=== PATIENT | male | born 1995 | race Caucasian/White ===

== ENCOUNTER 2023-06-06 23:34 | Emergency (ER) | payer BC, SELFPAY ==
--- NOTE | ~2023-06-06 | XR_ITS ---
EXAMINATION: XR wrist RT min 3V INDICATION: Right wrist pain TECHNIQUE: Three views of the right wrist are obtained. COMPARISON: None available FINDINGS: There is a 2 mm heterotopic ossification projecting dorsal to the carpals on the lateral vi ew. There appears to be adjacent soft tissue swelling. IMPRESSION: 1. Possible dorsal carpal chip fracture. Correlate for dorsal carpal tenderness. Consider CT. Reviewed, dictated and finalized at location F. KNITTER HELPER IMPRESSION: 1. Possible dorsal carpal chip fracture. Correlate for dorsal carpal tenderness . Consider CT.
--- NOTE | ~2023-06-06 | CT_ITS ---
EXAMINATION: CT brain wo con INDICATION: Head injury COMPARISON: None TECHNIQUE: Standard unenhanced head CT. The dose-length product (DLP) was 681.00 mGy-cm. The mA was a djusted according to patient size. Iterative reconstruction technique was employed. FINDINGS: No intracranial hemorrhage, acute infarction, or abnormal mass lesion. The ventricles are n ormal. No midline shift. The naranjo-white matter differentiation is normal. The basal cisterns are leone nt. There is an arachnoid cyst of the posterior fossa. The orbits are normal. The paranasal sinuses, mastoids and calvarium are normal. IMPRESSION: 1. No acute intracranial abnormality. Reviewed, dictated and finalized at location F. ECRAFT TEACHER
--- NOTE | ~2023-06-06 | CT_ITS ---
EXAMINATION: CT cervical spine wo con DATE: 06/07/2023 00:06 INDICATION: Head injury TECHNIQUE: Computed tomography (CT) of the cervical spine was performed without intravenous contrast. The dose-length product (DLP) was 437.40 mGy-cm. Automated exposure control and iterative reconstruc tion technique were employed. COMPARISON: None FINDINGS: There is reversal of the normal cervical lordosis. Bone alignment is normal. There is no fr acture. The odontoid process is intact. The vertebral body heights and intervertebral disc spaces are maintained. IMPRESSION: 1. No acute osseous abnormality. Reviewed, dictated and finalized at location F. DE SALES AGENT
[2023-06-06 23:38] VITALS: BP 118/61; PULSE 83; RESP 14; TEMP 36.7; O2SAT 100
--- NOTE | 2023-06-07 | PC.NURSE ---
Pt placed in c-collar, protective signal superintendent aware of pt.
--- NOTE | 2023-06-07 00:44 | PC.NURSE ---
Pt called for room. Had removed C-collar while in waiting room. Agreeable to have it placed back on.
--- NOTE | 2023-06-07 01:15 | ED.FALL ---
HPI - Fall General Chief Complaint: Fall Stated Complaint: fall possible loc Time Seen by Provider: 06/07/23 00:48 Source: patient Mode of arrival: ambulatory Limitations: intoxication History of Present Illness HPI Narrative: This is a 27-year-old male that presents to emergency department for head injury tonight. Reports he had been drinking. He remembered ordering pizza and then he woke up at the bottom of a stairwell. He is unsure how he fell. Reports a laceration to the side of his head. He is not up to date on tetanus. Reports bleeding and pain to the area. Also reports right wrist pain. Otherwise no focal injuries or areas of pain. Denies vision changes, vomiting, numbness or weakness. Related Data Allergies Allergy/AdvReac Type Severity Reaction Status Date / Time No Known Allergies Allergy Mild Verified 06/07/23 00:49 Review of Systems Review of Systems: CONSTITUTIONAL: Denies fever EYES: Denies visual changes GASTROINTESTINAL: Denies vomiting MUSCULOSKELETAL: Reports joint pain. Denies back pain, or myalgia. NEUROLOGIC: Denies numbness, or weakness. All systems reviewed & are unremarkable except as noted in HPI and below PMFSH Past Medical History Medical History (Updated 06/07/23 @ 02:02 by Serena Lopez PA-C) No active medical problems Social History Social History (Updated 06/07/23 @ 01:52 by Serena Lopez PA-C) Alcohol intake: current Exam Narrative: GENERAL: Well-appearing, well-nourished, and in no acute distress. HEAD: Normocephalic. 4 cm linear laceration in the subcutaneous tissue to the right side of the scalp EYES: PERRLA and EOMI. ENT: Nares clear, no rhinorrhea or epistaxis. Mucous membranes moist. Oropharynx without tonsillar hypertrophy exudate or other lesions. Bilateral TMs pearly naranjo non-bulging NECK: Supple. No adenopathy or masses. No midline spinal tenderness CHEST: Clear to auscultation. No respiratory distress. No wheezes rales or rhonchi HEART: Regular rate and rhythm. No murmur heard. Normal peripheral pulses. BACK: No midline spinal tenderness EXTREMITIES: Normal range of motion. No edema or obvious deformity. SKIN: Warm, dry, no rash. NEURO: No focal deficits. Alert and oriented x3. CN II-XII grossly intact PSYCH: Normal mood and affect Course Course Emergency Course: Patient updated on his workup and agrees with plan of care Vital Signs Vital signs: Vital Signs Temperature 98.1 F 06/06/23 23:38 Pulse Rate 83 06/06/23 23:38 Respiratory Rate 14 06/06/23 23:38 Blood Pressure 118/61 06/06/23 23:38 Pulse Oximetry 100 06/06/23 23:38 Oxygen Delivery Room Air 06/06/23 23:38 Temperature 98.1 F 06/06/23 23:38 Pulse Rate 83 06/06/23 23:38 Respiratory Rate 14 06/06/23 23:38 Blood Pressure 118/61 06/06/23 23:38 Pulse Oximetry 100 06/06/23 23:38 Oxygen Delivery Room Air 06/06/23 23:38 Procedures Laceration Laceration 1: Date: 06/07/23 Time: 01:50 Site: scalp Side (If applicable): right Size (cm): 4 Description: linear Depth: simple, single layer Local Anesthetic: none Pre-repair: wound explored and irrigated ====== Skin Level ====== Skin layer closed with: shikha Number of sutures: 6 ====== Subcutaneous Layer ====== ====== Muscle Layer ====== ====== Tendon Layer ====== MDM - Fall MDM Narrative Medical decision making narrative: Patient presents to the emergency department after a head injury tonight. Patient had been drinking alcohol. He is now alert and oriented and neurologically intact. Ambulatory in the ED with a steady gait. His vitals are stable. CT brain and cervical spine without acute findings. Right wrist x-ray without acute osseous abnormalities. No other focal injuries area of pain. His laceration was irrigated and closed with shikha. He is updated on tetanus. He was instructed on care of
[2023-06-07 02:35] VITALS: BP 125/75; PULSE 81; RESP 24; O2SAT 100
== END 2023-06-07 02:30 | disposition home or self-care (01) ==
PROVIDERS: Emergency Provider Physician Assistant
DX: S01.01XA Laceration without foreign body of scalp, initial encounter (principal); S69.91XA Unspecified injury of right wrist, hand and finger(s), initial encounter; W10.9XXA Fall (on) (from) unspecified stairs and steps, initial encounter
CPT/HCPCS: 12002; 70450; 72125; 73110; 99284; L0140